=== PATIENT | male | born 1975 | race Caucasian/White ===

== ENCOUNTER 2021-08-05 07:26 | Outpatient (CLI) | payer OTHER ==
[~2021-08-05 07:26] MED LIST: OMEPRAZOLE10 MG; WAL-ZAN 7575 MG
== END 2021-08-05 07:30 | disposition home or self-care (01) ==
LOC: RAD 07:26
PROVIDERS: ATTEND Internal Medicine Gastroenterology
DX: R10.84 Generalized abdominal pain (principal); R10.13 Epigastric pain; F17.200 Nicotine dependence, unspecified, uncomplicated

== ENCOUNTER 2023-10-27 07:11 | Emergency (ER) | payer OTHER ==
[~2023-10-27] VITALS: Ht 167.6 cm; Wt 68.9 kg
[2023-10-27] MEDS ORDERED: COZAAR50 MG PO (07:28)
[2023-10-27 09:00] LABS: PH,URINE 5.5 (5.0-8.0); URINE APPEARANCE Cloudy; URINE BILIRRUBIN Negative (NEGATIVE); URINE BLOOD Large; URINE COLOR Yellow; URINE GLUCOSE Negative (NEGATIVE); URINE LEUKOCYTE Negative; URINE NITRATE Negative; URINE PROTEIN 30 (NEGATIVE)
[2023-10-27 09:01] LABS: HEMATOCRIT 40.9 % (39.0-48.0); HEMOGLOBIN 14.4 g/dL (13-16.00); MEAN CELL VOLUME 88.2 fL (80.0-100.00); MEAN CORPUSCULAR HGB CONC 35.2 g/dl (32.0-36.0); PLATELET COUNT 174 K/uL (150-450); RED BLOOD COUNT 4.63 M/uL (4.00-6.00); RED CELL DISTRIBUTION WIDTH 13.9 % (11.5-14.5)
[2023-10-27 09:01] LABS: URINE BACTERIA 93.2 uL (0.0-1933); URINE EPITHELIAL CELLS 10.4 uL (0.0-38.8); URINE RBC 2692.3 uL (0.0-20.8); URINE WBC 8.8 uL (0.0-23.2)
[2023-10-27 09:30] LABS: CREATININE SERUM 0.87 mg/dL (0.70-1.30); GFR 94.47; POTASSIUM 3.68 mEq/L (3.5-5.1)
== END 2023-10-27 10:35 | disposition home or self-care (01) ==
LOC: ER 07:11
PROVIDERS: Emergency Medicine
DX: N23 Unspecified renal colic (principal); I10 Essential (primary) hypertension; Z88.0 Allergy status to penicillin

== ENCOUNTER 2023-12-27 09:29 | Emergency (ER) | payer OTHER ==
[~2023-12-27] VITALS: Ht 167.6 cm; Wt 81.6 kg
[~2023-12-27 09:29] MED LIST changes: +COZAAR50 MG PO
[2023-12-27] MEDS ORDERED: CETIRIZINE HCL 5 MG/5 ML ML PO STA (10:15)
[2023-12-27] MEDS ORDERED: METHYLPREDNISOLONE SOD SUCC 125 MG VIAL IM STA (10:15)
[2023-12-27] MEDS ORDERED: NEOMYCIN/POLYMYXIN B/HYDROCORT 20 DR/ML BOTTLE OT STA (10:16)
[2023-12-27 11:21] LABS: HEMATOCRIT 39.4 % (39.0-48.0); HEMOGLOBIN 13.8 g/dL (13-16.00); MEAN CELL VOLUME 88.2 fL (80.0-100.00); MEAN CORPUSCULAR HEMOGLOBIN 30.9 pg (27.00-32.0); PLATELET COUNT 244 K/uL (150-450); RED BLOOD COUNT 4.47 M/uL (4.00-6.00); RED CELL DISTRIBUTION WIDTH 13.7 % (11.5-14.5)
[2023-12-27] MEDS ORDERED: BENZONATATE200 M1 PO (13:07)
== END 2023-12-27 13:36 | disposition home or self-care (01) ==
LOC: ER 09:29
PROVIDERS: General Practice
DX: R05.8 Other specified cough (principal); I10 Essential (primary) hypertension; Z88.0 Allergy status to penicillin; Z20.822 Contact with and (suspected) exposure to COVID-19